=== PATIENT | male | born 1970 | race Caucasian/White ===

== ENCOUNTER 2023-11-12 06:53 | Emergency (ER) | payer OTHER, SELFPAY ==
--- NOTE | ~2023-11-12 | XR_ITS ---
EXAMINATION: XR chest 2V DATE: 11/12/2023 07:36 INDICATION: Palpitations. Chest pain. TECHNIQUE: Frontal and lateral views of the chest were obtained on 3 radiographs. COMPARISON: None. FINDINGS: There is mild atelectasis in left lower lung zone. No pleural effusion or pneumothorax. The heart size is normal. IMPRESSION: 1. Mild atelectasis in left lower lung zone. Reviewed, dictated and finalized at location A.
--- NOTE | 2023-11-12 06:55 | ECG_ITS ---
Measurements Intervals [place] Rate: 65 P: 38 RI: 206 QRS: 38 QRSD: 96 T: 39 QT: 416 QTc: 433 Interpretive Statements SINUS RHYTHM NORMAL ECG NO PREVIOUS ECG AVAILABLE FOR COMPARISON Electronically Signed On 11-12-2023 13:07:46 CDT by Dmitry Donis M.D.
[2023-11-12 06:56] VITALS: BP 151/84; PULSE 69; RESP 16; TEMP 36.5; O2SAT 100
[2023-11-12 07:23] VITALS: BP 140/85; PULSE 68; RESP 17; O2SAT 99
[2023-11-12 07:33] LABS: Basophils Absolute Auto 0.1 K/mm3 (0.0-0.1); Basophils Percent Auto 1.7 % (0.2-1.2); Eosinophils Absolute Auto 0.3 K/mm3 (0-0.3); Eosinophils Percent Auto 7.8 % (0-4.4); Hematocrit 38.9 % (42.0-52.0); Hemoglobin 13.9 g/dL (14.0-18.0); Lymphocytes Absolute Auto 0.89 K/mm3 (0.9-3.2); Lymphocytes Percent Auto 24.7 % (18.3-44.2); Mean Corpuscular HGB Conc 35.7 g/dl (32-36); Mean Corpuscular Hemoglobin 34.6 pg (26-34); Mean Corpuscular Volume 96.8 fl (80-100); Mean Platelet Volume 9.1 fl (7.4-10.4); Monocytes Absolute Auto 0.4 K/mm3 (0.1-0.6); Monocytes Percent Auto 11.1 % (2.6-8.5); Neutrophils Percent Auto 54.7 % (45.5-73.1); Platelet Count Result 230 k/mm3 (150-375); Red Blood Count 4.02 M/mm3 (4.6-6.20); Red Cell Distribution Width 11.6 % (11.5-14.5); White Blood Count 3.6 K/mm3 (4.5-10.0)
[2023-11-12 07:44] LABS: Alanine Aminotransferase 36 U/L (6-50); Albumin Level 4.3 g/dL (3.5-5.1); Alkaline Phosphatase 40 U/L (38-126); Anion Gap 4 mmol/L (4-12); Aspartate Amino Transferase 40 U/L (17-59); Bilirubin,Total 0.9 mg/dL (0.2-1.3); Blood Urea Nitrogen 16 mg/dL (9-20); Calcium 9.1 mg/dL (8.4-10.2); Carbon Dioxide 28 mmol/L (22-30); Chloride 103 mmol/L (98-107); Estimated CRCL calculation 120 ml/min; Estimated Glomerular Filt Rate > 60; Glucose 107 mg/dL (65-110); Lipase 177 U/L (23-300); Potassium 3.9 mmol/L (3.4-5.0); Sodium 135 mmol/L (137-145)
[2023-11-12 07:49] LABS: Prothrombin Time 13.1 Seconds (11.1-14.7)
[2023-11-12 07:50] LABS: Partial Thromboplastin Time 25.5 Seconds (22.3-36.8)
[2023-11-12 07:55] LABS: Troponin I < 0.012 ng/mL (0.000-0.034)
[2023-11-12 08:05] VITALS: PULSE 64
--- NOTE | 2023-11-12 08:18 | ED.ARRPALP ---
HPI - Arrhythmia/Palpitations General Chief Complaint: Arrhythmia/Palpitations Stated Complaint: heart palpitations Time Seen by Provider: 11/12/23 07:12 Source: patient Mode of arrival: ambulatory Limitations: no limitations History of Present Illness HPI narrative: 52-year-old with a history of anxiety, hyperlipidemia here with complaints of having intermittent palpitations for quite some time however since last few days he has been having steady. He denies any chest pain or shortness of breath. Patient states that at times his heart rate is fast at times he feels missed beat. MD complaint: heart racing and palpitations Onset (ago): week(s) (1) Duration: intermittent Severity: moderate Associated symptoms: denies other symptoms Related Data Home Medications Medication Instructions Recorded Confirmed atorvastatin 40 mg tablet mg 11/12/23 Allergies Allergy/AdvReac Type Severity Reaction Status Date / Time No Known Allergies Allergy Verified 11/12/23 07:16 Review of Systems Review of Systems: All systems reviewed & are unremarkable except as noted in HPI and below Constitutional: Constitutional: Reports no additional constitutional complaints Eyes: Eyes: Reports no additional eye complaints ENT: Reports system reviewed and no additional complaints, except as documented Cardiovascular: Cardiovascular: Reports as per HPI Respiratory: Respiratory: Reports no additional respiratory complaints Gastrointestinal: Gastrointestinal: Reports no additional gastrointestinal complaints Genitourinary: Genitourinary: Reports no additional male genitourinary complaints Musculoskeletal: Musculoskeletal: Reports no additional musculoskeletal complaints Neurologic: Reports system reviewed and no additional complaints, except as documented Exam Narrative: GENERAL: Well-appearing, well-nourished, and in no acute distress. HEAD: Normocephalic, atraumatic. EYES: PERRLA and EOMI. ENT: Nares clear, no rhinorrhea or epistaxis. Mucous membranes moist. NECK: Supple. CHEST: Clear to auscultation. No respiratory distress. HEART: Regular rate and rhythm. No murmur heard. Normal peripheral pulses. ABDOMEN: Soft, nontender, nondistended, normal active bowel sounds. EXTREMITIES: Normal range of motion. No edema. SKIN: Warm, dry, no rash. NEURO: No focal deficits. Alert and oriented x3. PSYCH: Normal mood and affect. Course Course Emergency Course: Patient had no further episodes while he was here in the ER. I did inform him about his EKG, lab work will place him on Holter monitor for 48 hours. Advised him to follow-up with Dr. Welch on outpatient basis Vital Signs Vital signs: Vital Signs Temperature 36.5 C 11/12/23 06:56 Pulse Rate 69 11/12/23 06:56 Respiratory Rate 16 11/12/23 06:56 Blood Pressure 151/84 H 11/12/23 06:56 Pulse Oximetry 100 11/12/23 06:56 Oxygen Delivery Room Air 11/12/23 06:56 Temperature 36.4 C 11/12/23 08:42 Pulse Rate 66 11/12/23 08:42 Respiratory Rate 14 11/12/23 08:42 Blood Pressure 144/90 H 11/12/23 08:42 Pulse Oximetry 98 11/12/23 08:42 Oxygen Delivery Room Air 11/12/23 06:56 MDM - Arrhythmia/Palpitations Differential Diagnosis Differential diagnosis: Likely palpitations, sinus tachycardia and artial flutter Medical Records Attestation: I reviewed the patient's medical records. Lab Data Attestation: I reviewed the patient's lab results. 11/12/23 07:24 11/12/23 07:24 Labs: Lab Results 11/12/23 Range/Units 07:24 WBC 3.6 L (4.5-10.0) K/mm3 RBC 4.02 L (4.6-6.20) M/mm3 Hgb 13.9 L (14.0-18.0) g/dL Hct 38.9 L (42.0-52.0) % MCV 96.8 (80-100) fl MCH 34.6 H (26-34) pg MCHC 35.7 (32-36) g/dl RDW 11.6 (11.5-14.5) % Plt Count 230 (150-375) k/mm3 MPV 9.1 (7.4-10.4) fl Immature Gran % (Auto) 0.0 (0-0.5) % Neut % (Auto) 54.7 (45.5-73.1) % Lymph % (Auto) 24.7 (18.3-44.2)
[2023-11-12 08:42] VITALS: BP 144/90; PULSE 66; RESP 14; TEMP 36.4; O2SAT 98
--- NOTE | 2023-11-15 16:25 | WPDHOLTEREM ---
Holter/Event Monitor Holter/Event Monitor Date of procedure: 11/15/23 Holter/Event Procedure: 48 Hr Holter Monitor Indications: Palpitations Conclusion: 1. 48 hour holter monitor on 11/12/23. 2. Underlying rhythm is sinus rhythm. HR range 48-109 bpm; average HR 68 bpm. HR at 48 bpm was at 02:59. 3. There are 9 premature supraventricular complexes and 2 supraventricular couplets. No supraventricular tachycardia. 4. There are 5,630 premature ventricular complexes, 4 ventricular couplets, 3 ventricular bigeminy and 15 ventricular trigeminy. No ventricular tachycardia. 5. No sinoatrial or atrioventricular blocks. No significant pauses greater than 2 seconds. 6. Patient reports symptoms of palpitations which demonstrate sinus rhythm at 78 bpm.
== END 2023-11-12 08:44 | disposition home or self-care (01) ==
PROVIDERS: Emergency Medicine; Emergency Provider Family Medicine; PCP Family Medicine
DX: R00.2 Palpitations (principal); R00.8 Other abnormalities of heart beat; I49.1 Atrial premature depolarization; I49.3 Ventricular premature depolarization
CPT/HCPCS: 36415; 71046; 80053; 83690; 84484; 85025; 85610; 85730; 93005; 93225; 93226; 99284